=== PATIENT | male | born 1970 | race Caucasian/White ===

== ENCOUNTER → 2021-02-10 | Outpatient (CLI) | payer OTHER ==
[~2021-02-10] VITALS: Ht 185.4 cm; Wt 68.0 kg
== END | disposition home or self-care (01) ==
LOC: PREOP 09:20
PROVIDERS: ATTEND Surgery
DX: Z01.818 Encounter for other preprocedural examination (principal)

== ENCOUNTER 2021-02-13 13:37 | Day surgery (SDC) | payer OTHER ==
[~2021-02-13] VITALS: Ht 185.5 cm; Wt 68.2 kg
--- NOTE | 2021-02-13 13:57 | Conscious Sedation/ASA ---
Conscious Sedation Pre-Proced Time 13:30 ASA Score 2 For ASA 3 and 4: Consider anesthesia and medical clearance. Also, for patients with a history of failed moderate sedation consider anesthesia. Airway Lungs Heart ASA score ASA 1: a normal healthy patient ASA 2: a patient with a mild systemic disease (mid diabetes, controlled hypertension, obesity ASA 3: a patient with a severe systemic disease that limits activity (angina, COPD, prior Myocardial infarction) ASA 4: a patient with an incapacitating disease that is a constant threat to life (CHF, renal failure) ASA 5: a moribund patient not expected to survive 24 hrs. (ruptured aneurysm) ASA 6: a declared brain- patient whose organs are being harvested. For emergent operations, add the letter E after the classification Mallampati Classification Grade 2 Sedation Plan Analgesia, Amnesia, Plan communicated to team members, Discussed options with patient/fam, Discussed risks with patient/fam The patient is an appropriate candidate to undergo the planned procedure, sedation, and anesthesia. The patient immediately re-assessed prior to indication. KALI BENNETT MD Feb 13, 2021 13:57
--- NOTE | 2021-02-13 13:58 | Progress Note-Pre Operative ---
Pre-Operative Progress Note H&P Reviewed The H&P was reviewed, patient examined and no changes noted. Date Seen by Provider: Feb 13, 2021 Time Seen by Provider: 13:30 Date H&P Reviewed: Feb 13, 2021 Time H&P Reviewed: 13:30 Pre-Operative Diagnosis: screening KALI Wu MD Feb 13, 2021 13:58
--- NOTE | 2021-02-13 13:59 | Discharge Inst-Surgical ---
D/C Lap Instructions-SABRINA Follow Up Activity as tolerated High Fiber Diet 25g or more per day Avoid Alcohol, Caffeine, Spicy [place] and Acid foods. Drink 64 fluid oz or more of fluids per day. Symptoms to Report: Fever over 101 degree F, Nausea/Vomiting If any problems/questions: Contact your physician or go to Emergency Room KALI BENNETT MD Feb 13, 2021 13:58
[2021-02-13] MEDS ORDERED: ONDANSETRON 4 MG/2 ML (SDV) Z0FRAN IVP PRN (14:00)
[2021-02-13] MEDS ORDERED: LIDOCAINE JELLY 2% 6 ML SYRINGE MM PRN (14:00)
[2021-02-13] MEDS ORDERED: NS IV 500 ML 500 ML IV PRN (14:00)
[2021-02-13] MEDS ORDERED: MIDAZOLAM 5 MG/5 ML (VERSED) VIAL IV ONE (14:00)
[2021-02-13] MEDS ORDERED: fentaNYL INJ 100 MCG/2 ML AMP IVP ONE (14:00)
[2021-02-13] MEDS ORDERED: ACETAMINOPHEN 325 MG TABLET PO PRN (14:00)
[2021-02-13 14:02] VITALS: BP 125/77
[2021-02-13] MEDS ORDERED: MIDAZOLAM 2 MG/2 ML (VERSED) VIAL ONE (14:37)
[2021-02-13] MEDS ORDERED: proPOfol 200 MG/20 ML (DIPRIVAN) VIAL IV ONE ×2 (14:37→14:59)
[2021-02-13 15:15] VITALS: BP_SYST 152; BP_DIAS 78; BP_DIAS 85
--- NOTE | 2021-02-13 15:19 | Progress Note-Post Operative ---
Post-Operative Progess Note Surgeon (s)/Manager Client Service (s) Surgeon KALI BENNETT MD Manager Client Service: none Pre-Operative Diagnosis screening colo Post-Operative Diagnosis chronic stage 2 ext and int hemorrhoids, possible parasitic infestation? Procedure & Operative Findings Date of Procedure 02/13/21 Procedure Performed/Findings colonoscopy with washings. Anesthesia Type mac Estimated Blood Loss Estimated blood loss (mL): minimal Specimens/Packing Specimens Removed cecal washings KALI BENNETT MD Feb 13, 2021 15:19
[2021-02-13 15:45] VITALS: BP 136/92
[2021-02-13 15:55] VITALS: BP 136/92
--- NOTE | 2021-02-13 18:53 | Anesthesia-General Post-Op ---
MAC Patient Condition Mental Status/LOC: Same as Preop Cardiovascular: Satisfactory Nausea/Vomiting: Absent Respiratory: Satisfactory Pain: Controlled Complications: Absent Post Op Complications Complications None Follow Up Care/Instructions Patient Instructions None needed. Anesthesiology Discharge Order Discharge Order Patient is doing well, no complaints, stable vital signs, no apparent adverse anesthesia problems. No complications reported per nursing. SARAY GARG CRNA Feb 13, 2021 18:53
--- NOTE | 2021-02-13 20:51 | OPERATIVE REPORT ---
DATE OF SERVICE: 02/13/2021 PREOPERATIVE DIAGNOSES: Weight loss, screening colonoscopy. POSTOPERATIVE DIAGNOSES: Mild chronic stage II external and internal hemorrhoids, possible parasitic infestation. No anatomic abnormalities. No polyps or any neoplastic neoplasms. PROCEDURE: Colonoscopy with washings. SURGEON: Kali Bennett MD. ANESTHESIA: Monitored anesthesia care. ESTIMATED BLOOD LOSS: Minimal. FINDINGS: Mild chronic stage II external and internal hemorrhoids, possible parasitic infestation. No anatomic abnormalities. No polyps or any neoplastic neoplasms. DISPOSITION: The patient tolerated the procedure well. INDICATIONS: The patient is a 50-year-old male who presented with small amounts of blood per rectum; however, also has had difficulty gaining weight despite having a normal appetite and eating normal volumes of food. He does not report any family history of colon cancer. DESCRIPTION OF PROCEDURE: The patient was brought to the endoscopy suite, laid in the left lateral decubitus position. After adequate IV pain and sedative medications and monitored anesthesia care, a digital rectal examination was performed. Chronic stage II external and internal hemorrhoids were identified, which were not actively edematous nor inflamed nor any bleeding. Normal sphincter tone was felt and there were no palpable masses. The prostate gland was palpable and appeared normal. The endoscope was then intubated to the anus and rectum gently insufflated. The endoscope was then advanced through the valves of [place] of the rectum with no polyps or any neoplasms identified. Through the sigmoid colon, no diverticulosis identified. The endoscope was then advanced to the remainder of the descending, transverse and ascending colon to the cecum. These segments were normal. There were no polyps or any neoplasms identified throughout the colon or rectum; however, at the level of the cecum, there appeared to be multiple fragmented white strings, which may indicate some form of parasitic infestation and this was aspirated and sent for ova and parasite laboratory work. The endoscope was then slowly withdrawn while taking a second look and suctioning of residual air with no additional findings. The patient tolerated the procedure well. We will await the culture results and have him follow up in the office. Job ID: [id number] DocumentID: [id number] Dictated Date: 02/13/2021 15:14:04 Panel Instrument Repairer Date: 02/13/2021 20:50:09 Dictated By: KALI BENNETT MD
== END 2021-02-13 16:00 | disposition home or self-care (01) ==
LOC: ENDO 13:37
PROVIDERS: ATTEND Surgery
DX: K64.1 Second degree hemorrhoids (principal); R63.4 Abnormal weight loss; F17.210 Nicotine dependence, cigarettes, uncomplicated
CPT/HCPCS: 87328; 87329